=== PATIENT | female | born 1950 | race Caucasian/White ===

== ENCOUNTER 2017-07-23 10:18 | Emergency (ER) | payer MEDICAID, OTHER ==
[2017-07-23 10:18] VITALS: BMI 31.1
[2017-07-23 10:53] VITALS: RESP 18
[2017-07-23 12:01] LABS: BASO # 0.03 K/mm3 (0.0-2.0); BASO % 1.2 % (0.0-3.0); EOS # 0.1 (0.0-0.7); EOS % 3.3 % (1.5-5.0); GRAN # 0.76 (1.4-6.5); HEMATOCRIT 37.9 % (36.0-48.0); LYMPH # 1.5 (1.2-3.4); LYMPH % 60.8 % (22.0-35.0); MEAN CELL VOLUME 91.5 fl (80.0-105.0); MEAN CORPUSCULAR HGB CONC 32.7 g/dl (31.0-37.0); MEAN PLATELET VOLUME 10.5 fl (7.0-11.0); MONO # 0.1 (0.1-0.6); MONO % 3.7 % (1.0-6.0); RED CELL DISTRIBUTION WIDTH 14.4 % (11.5-14.5)
[2017-07-23 12:06] LABS: WHITE BLOOD COUNT 2.5 10^3/ul (4.5-11.0)
[2017-07-23 12:09] LABS: PH,URINE 6.5 (4.7-8.0); URINE BILIRUBIN NEGATIVE (NEGATIVE); URINE BLOOD TRACE-INTACT (NEGATIVE); URINE GLUCOSE (UA) NEGATIVE (NEGATIVE); URINE KETONE NEGATIVE (NEGATIVE); URINE LEUKOCYTE ESTERASE NEGATIVE Leu/uL (NEGATIVE); URINE PROTEIN NEGATIVE mg/dL (<30 mg/dL); URINE UROBILINOGEN 0.2 E.U./dL (<1 E.U./dL)
[2017-07-23 12:11] LABS: ALB/GLOB RATIO 1.1 (1.1-1.8); ALKALINE PHOSPHATASE 97 U/L (38-126); ALT/SGPT 12 U/L (7-56); AST/SGOT 35 U/L (14-36); BILIRUBIN,TOTAL 0.6 mg/dL (0.2-1.3); BLOOD UREA NITROGEN 17 mg/dL (7-21); CALCIUM 9.2 mg/dL (8.4-10.5); CARBON DIOXIDE 30 mmol/L (21-33); CHLORIDE 104 mmol/L (98-107); GFR AFRICAN-AMERICAN > 60; GLUCOSE,RANDOM 90 mg/dL (70-110); SODIUM 139 mmol/L (132-148); TOTAL PROTEIN 7.2 g/dL (5.8-8.3)
[2017-07-23 12:18] LABS: INR 1.16 (0.93-1.08)
[2017-07-23 12:20] LABS: URINE APPEARANCE CLEAR (CLEAR); URINE COLOR YELLOW (YELLOW)
[2017-07-23 12:30] LABS: URINE BACTERIA FEW (NEG); URINE EPITHELIAL CELLS 0 - 2 /hpf (0-5); URINE WBC 0 - 2 /hpf (0-6)
[2017-07-23 12:33] LABS: TROPONIN I < 0.01 ng/mL
--- NOTE | 2017-07-23 12:45 | RAD ---
HISTORY: chest pain COMPARISON: 09/21/2016 FINDINGS: LUNGS: Shallow lung volumes. No consolidation. PLEURA: No significant pleural effusion identified, no pneumothorax apparent. CARDIOVASCULAR: Minimal cardiomegaly. Minimal pulmonary venous congestion versus crowding due limited inspiration OSSEOUS STRUCTURES: No significant abnormalities. VISUALIZED UPPER ABDOMEN: Normal. OTHER FINDINGS: None. IMPRESSION: Limited inspiration. Mild cardiomegaly similar. . Possible central minimal pulmonary venous congestion. Crowding due to shallow inspiration another consideration
--- NOTE | 2017-07-23 12:52 | ED PDOC ---
Arrival/HPI - General Chief Complaint: Chest Pain Time Seen by Provider: 07/23/17 10:37 Historian: Patient - History of Present Illness Narrative History of Present Illness (Text): 07/23/17 12:34 66yo female with PMHx of Afib, hypertension, CAD who was referred to ED by Dr. Zimmerman for evaluation of chest pain. Patient stated that she had palpation and chest pain 2days ago, that resolved. Notes that she went to see Dr. zimmerman today for a regular office scheduled appointment and was referred to ED when she stated that she had chest pain. Notes that she had no chest pain or palpitation today. Denies any somatic complaint in ED. Past Medical History - Provider Review Nursing Documentation Reviewed: Yes - Infectious Disease Hx of Infectious Diseases: None - Tetanus Immunization Tetanus Immunization: Unknown - Reproductive Menopause: No - Past Medical History Past Medical History: Non-Contributing - Cardiac Hx Hypertension: Yes - Pulmonary Hx Respiratory Disorders: No - Neurological Hx Neurological Disorder: Yes Hx Dizziness: Yes - HEENT Hx HEENT Disorder: No - Renal Hx Renal Disorder: No - Endocrine/Metabolic Hx Endocrine Disorders: No - Hematological/Oncological Hx Blood Disorders: No - Integumentary Hx Dermatological Disorder: No - Musculoskeletal/Rheumatological Hx Musculoskeletal Disorders: Yes (chronic back pain) Hx Falls: No - Gastrointestinal Hx Gastrointestinal Disorders: No (CHRNIC CONSTIPATION) Hx Gall Bladder Disease: Yes (CHOLECYSTECTOMY) - Genitourinary/Gynecological Hx Genitourinary Disorders: Yes - Psychiatric Hx Psychophysiologic Disorder: No Hx Anxiety: No Hx Bipolar Disorder: No Hx Depression: No Hx Emotional Abuse: No Hx Hallucinations: No Hx Panic Disorder: No Hx Post Traumatic Stress Disorder: No Hx Psychosis: No Hx Physical Abuse: No Hx Schizophrenia: No Hx Sexual Abuse: No Hx Substance Use: No - Surgical History Hx Section: Yes Hx Cholecystectomy: Yes - Anesthesia Hx Anesthesia: Yes Hx Anesthesia Reactions: No Hx Malignant Hyperthermia: No - Suicidal Assessment Feels Threatened In Home Enviroment: No Family/Social History - Physician Review Nursing Documentation Reviewed: Yes Family/Social History: Unknown Family HX Smoking Status: Never Smoked Hx Alcohol Use: No Hx Substance Use: No Hx Substance Use Treatment: No Allergies/Home Meds Allergies/Adverse Reactions: Allergies No Known Allergies Allergy (Verified 09/22/16 00:57) Review of Systems - Physician Review All systems were reviewed & negative as marked: Yes - Review of Systems Constitutional: Normal Eyes: Normal ENT: Normal Respiratory: Normal Cardiovascular: Chest Pain, Palpitations. absent: Edema, Calf Pain, Orthopnea Gastrointestinal: Normal Genitourinary Female: Normal Musculoskeletal: Normal Skin: Normal Neurological: Normal Endocrine: Normal Hemo/Lymphatic: Normal Psychiatric: Normal Physical Exam Vital Signs Reviewed: Yes Vital Signs Temp Pulse Pulse Resp BP Pulse Ox 07/23/17 13:15 98.2 F 64 18 138/88 99 07/23/17 12:00 68 07/23/17 10:35 98.4 F 67 18 137/94 H 100 07/23/17 10:30 98.7 F 67 18 137/94 H 100 Temperature: Afebrile Blood Pressure: Normal Pulse: Regular Respiratory Rate: Normal Appearance: Positive for: Well-Appearing, Non-Toxic, Comfortable Pain Distress: None Mental Status: Positive for: Alert and Oriented X 3 - Systems Exam Head: Present: Atraumatic, Normocephalic Pupils: Present: PERRL Extroacular Muscles: Present: EOMI Conjunctiva: Present: Normal Mouth: Present: Moist Mucous Membranes Neck: Present: Normal Range of Motion Respiratory/Chest: Present: Clear to Auscultation, Good Air Exchange. No: Respiratory Distress, Accessory Muscle Use Cardiovascular: Present: Regular Rate and Rhythm, Normal S1, S2. No: Murmurs Abdomen: Present: Normal Bowel Sounds. No: Tenderness, Distention, Peritoneal Signs Back: Present: Normal Inspection Upper Extremity: Present: Normal Inspection. No: Cyanosis, Edema Lower Extremity: Present: Normal Inspection. No: Edema Neurological: Present: GCS=15, CN II-XII Intact, Speech Normal Skin: Present: Warm, Dry, Normal Color. No: Rashes Psychiatric: Present: Alert, Oriented x 3, Normal Insight, Normal Concentration Medical Decision Making ED Course and Treatment: 07/23/17 19:39 PT was comfortable in ED. She denied chest pain or any somatic complaint in ED. She was leukopenic and this her baseline, when compared to her previous labs. EKG Sinus kemi @57bpm. No ST changes CXR NAD Case was DW Dr. Zimmerman, who referred pt to ED. He is pt's Parasitology Teacher and sees her in his office. He recommends that pt be Dc home . PT was DC and advised to f /u with Dr. Zimmerman. - Lab Interpretations Lab Results: 07/23/17 11:30 07/23/17 11:30 Lab Results 07/23/17 11:30: Sodium 139, Potassium 4.0, Chloride 104, Carbon Dioxide 30, Anion Gap 9 L, BUN 17, Creatinine 0.7, Est GFR ( Amer) > 60, Est GFR (Non -Af Amer) > 60, Random Glucose 90, Calcium 9.2, Magnesium 2.0, Total Bilirubin 0.6, AST 35, ALT 12, Alkaline Phosphatase 97, Lactate Dehydrogenase 392, Total Creatine Kinase 45, Troponin I < 0.01, NT-Pro-B Natriuret Pep 294, Total Protein 7.2, Albumin 3.8, Globulin 3.4, Albumin/Globulin Ratio 1.1 07/23/17 11:30: Urine Color Yellow, Urine Appearance Clear, Urine pH 6.5, Ur Specific [place] 1.010, Urine Protein Negative, Urine Glucose (UA) Negative, Urine Ketones Negative, Urine Blood Trace-intact H, Urine Nitrate Negative, Urine Bilirubin Negative, Urine Urobilinogen 0.2, Ur Leukocyte Esterase Negative , Urine RBC 1 - 3, Urine WBC 0 - 2, Ur Epithelial Cells 0 - 2, Urine Bacteria Few 07/23/17 11:30: PT 12.8 H, INR 1.16 H, APTT 36.0, D-Dimer, Quantitative 232 07/23/17 11:30: WBC 2.5 L*, RBC 4.14, Hgb 12.4, Hct 37.9, MCV 91.5, MCH 30.0, MCHC 32.7, RDW 14.4, Plt Count 191, MPV 10.5, Gran % 31.0 L, Lymph % (Auto) 60.8 H, [place] % (Auto) 3.7, Eos % (Auto) 3.3, Baso % (Auto) 1.2, Gran # 0.76 L, Lymph # 1.5, [place] # 0.1, Eos # 0.1, Baso # 0.03 - RAD Interpretation Radiology Orders: 07/23/17 11:02 CHEST PORTABLE [RAD] Stat Disposition/Present on Arrival - Present on Arrival Any Indicators Present on Arrival: No History of DVT/PE: No History of Uncontrolled Diabetes: No Urinary Catheter: No History of Decub. Ulcer: No History Surgical Site Infection Following: None - Disposition Have Diagnosis and Disposition been Completed?: Yes Diagnosis: Palpitations Disposition: HOME/ ROUTINE Disposition Time: 12:50 Patient Plan: Discharge Condition: STABLE Discharge Instructions (ExitCare): Palpitations (ED) Additional Instructions: Follow up with your Doctor Return to ED for any new or reoccurring symptoms Referrals: Salomón Zimmerman MD [Family Provider] - Follow up with primary Forms: [employer] (Lao)
[2017-07-23 13:15] VITALS: BP 138/88; PULSE 64; TEMP 98.2; O2SAT 99
--- NOTE | 2017-07-23 23:35 | CARD ---
APPROVED REPORT EKG Measurement Heart [id number] <Conclusion> Sinus bradycardia Cannot rule out Anterior infarct, age undetermined Abnormal ECG
== END 2017-07-23 13:15 | disposition home or self-care (01) ==
LOC: ED 10:18
DX: R00.2 Palpitations (principal); I10 Essential (primary) hypertension; I25.10 Atherosclerotic heart disease of native coronary artery without angina pectoris; I48.91 Unspecified atrial fibrillation

== ENCOUNTER 2017-07-28 09:49 | Inpatient (IN) | payer MEDICAID ==
[2017-07-28] MEDS ORDERED: diltiaZEM IVPB 100mg in NS 100 ML IV PRN (10:02)
[2017-07-28] MEDS ORDERED: Sodium Chloride 0.9% 1,000 ML IV STA (10:03)
--- NOTE | 2017-07-28 10:03 | ED PDOC ---
Arrival/HPI - General Chief Complaint: Chest Pain Time Seen by Provider: 07/28/17 09:56 Historian: Patient - History of Present Illness Narrative History of Present Illness (Text): 07/28/17 10:00 Brii Domínguez is a 66 year old female, whose past medical history includes hypertension and atrial fibrillation, who presents to the emergency department complaining of palpitations causing chest discomfort. Patient reports being compliant with medication Eloquis and Metoprolol. Patient denies other complaints. Senior Drupal Developer: Dr. Zimmerman Time/Duration: Prior to Arrival Symptom Onset: Sudden Symptom Course: Unchanged Past Medical History - Provider Review Nursing Documentation Reviewed: Yes - Infectious Disease Hx of Infectious Diseases: None - Tetanus Immunization Tetanus Immunization: Unknown - Reproductive Menopause: Yes - Past Medical History Past Medical History: Non-Contributing - Cardiac Hx Atrial Fibrillation: Yes Hx Hypertension: Yes - Pulmonary Hx Respiratory Disorders: No - Neurological Hx Neurological Disorder: Yes Hx Dizziness: Yes - HEENT Hx HEENT Disorder: No - Renal Hx Renal Disorder: No - Endocrine/Metabolic Hx Endocrine Disorders: No - Hematological/Oncological Hx Blood Disorders: No - Integumentary Hx Dermatological Disorder: No - Musculoskeletal/Rheumatological Hx Musculoskeletal Disorders: Yes (chronic back pain) Hx Falls: No - Gastrointestinal Hx Gastrointestinal Disorders: No (CHRNIC CONSTIPATION) Hx Gall Bladder Disease: Yes (CHOLECYSTECTOMY) - Genitourinary/Gynecological Hx Genitourinary Disorders: Yes - Psychiatric Hx Psychophysiologic Disorder: No Hx Anxiety: No Hx Bipolar Disorder: No Hx Depression: No Hx Emotional Abuse: No Hx Hallucinations: No Hx Panic Disorder: No Hx Post Traumatic Stress Disorder: No Hx Psychosis: No Hx Physical Abuse: No Hx Schizophrenia: No Hx Sexual Abuse: No Hx Substance Use: No - Surgical History Hx Section: Yes Hx Cholecystectomy: Yes - Anesthesia Hx Anesthesia: Yes Hx Anesthesia Reactions: No Hx Malignant Hyperthermia: No - Suicidal Assessment Feels Threatened In Home Enviroment: No Family/Social History - Physician Review Nursing Documentation Reviewed: Yes Family/Social History: Unknown Family HX Smoking Status: Never Smoked Hx Alcohol Use: No Hx Substance Use: No Hx Substance Use Treatment: No Allergies/Home Meds Allergies/Adverse Reactions: Allergies No Known Allergies Allergy (Verified 09/22/16 00:57) Review of Systems - Review of Systems Constitutional: absent: Fevers Eyes: absent: Vision Changes Respiratory: absent: SOB, Cough Cardiovascular: Palpitations. absent: Chest Pain Gastrointestinal: absent: Abdominal Pain, Diarrhea, Nausea, Vomiting Genitourinary Female: absent: Dysuria, Frequency Musculoskeletal: absent: Back Pain Skin: absent: Rash Neurological: absent: Headache, Dizziness Endocrine: absent: Diaphoresis Hemo/Lymphatic: absent: Easy Bleeding Physical Exam Vital Signs Reviewed: Yes Vital Signs Temp Pulse Resp BP Pulse Ox 07/28/17 14:50 108 H 123/88 07/28/17 13:08 83 18 101/68 100 07/28/17 11:41 88 105/64 07/28/17 10:12 130 H 122/76 07/28/17 10:00 97.5 F L 139 H 20 122/76 100 Temperature: Afebrile Blood Pressure: Normal Pulse: Tachycardic Respiratory Rate: Normal Appearance: Positive for: Well-Appearing, Non-Toxic, Comfortable Pain Distress: None Mental Status: Positive for: Alert and Oriented X 3 - Systems Exam Head: Present: Atraumatic, Normocephalic Pupils: Present: PERRL Extroacular Muscles: Present: EOMI Conjunctiva: Present: Normal Respiratory/Chest: Present: Clear to Auscultation, Good Air Exchange. No: Respiratory Distress, Accessory Muscle Use Cardiovascular: Present: Irregular Rhythm, Tachycardic. No: Regular Rate and Rhythm, Murmurs Lower Extremity: Present: Normal Inspection. No: Edema Skin: Present: Warm, Dry, Normal Color. No: Rashes Psychiatric: Present: Alert, Oriented x 3, Normal Insight, Normal Concentration Medical Decision Making ED Course and Treatment: 07/28/17 Impression: 66 year old female with irregularly irregular heart rhythm. Plan: -- EKG -- Chest X-ray -- Labs -- Urinalysis -- Cardizem and Sodium Chloride -- Reassess and disposition Progress Notes: EKG: Ordered, reviewed, and independently interpreted the EKG. Rate : 140 BPM Rhythm : atrial fibrillation Interpretation : No ST-segment elevations or depressions, no T-wave inversions, normal intervals. 07/28/17 10:45 Chest X-ray: Creator : Yovani Nguyễn MD COMPARISON: 07/23/2017 FINDINGS: LUNGS: No active pulmonary disease. PLEURA: No significant pleural effusion identified, no pneumothorax apparent. CARDIOVASCULAR: Normal. OSSEOUS STRUCTURES: No significant abnormalities. VISUALIZED UPPER ABDOMEN: Normal. OTHER FINDINGS: None. IMPRESSION: No active disease. 07/28/17 10:[address] Zimmerman, who is aware of plan and treatment. Planning to observe patient until heart is back to normal with no discomfort. 07/28/17 13:51 Spoke to patient's daughter who is aware of treatment. Heart rate has been normal since 11:00. On reevaluation the patient feels better and is in no acute distress. I have discussed the results and plan with the patient, who expresses understanding. Patient given the opportunity to ask question, all questions were answered and there is agreement with the plan to discharge the patient home. Patient is stable for discharge. Patient was instructed to follow up Dr. Zimmerman. - Lab Interpretations Lab Results: 07/28/17 10:00 07/28/17 10:00 Lab Results 07/28/17 11:53: Urine Color Straw, Urine Appearance Clear, Urine pH 6.0, Ur Specific [place] <= 1.005, Urine Protein Negative, Urine Glucose (UA) Negative, Urine Ketones Negative, Urine Blood Negative, Urine Nitrate Negative, Urine Bilirubin Negative, Urine Urobilinogen 0.2, Ur Leukocyte Esterase Negative 07/28/17 10:00: Sodium 142, Potassium 4.1, Chloride 106, Carbon Dioxide 26, Anion Gap 14, BUN 15, Creatinine 0.7, Est GFR ( Amer) > 60, Est GFR (Non- Af Amer) > 60, Random Glucose 99, Calcium 9.5, Total Bilirubin 0.8, AST 32, ALT 13, Alkaline Phosphatase 89, Lactate Dehydrogenase 420, Total Creatine Kinase 54 , Troponin I < 0.01, NT-Pro-B Natriuret Pep 1940 H, Total Protein 7.7, Albumin 4.0, Globulin 3.7, Albumin/Globulin Ratio 1.1 07/28/17 10:00: PT 12.6 H, INR 1.14 H, APTT 40.8 H 07/28/17 10:00: WBC 2.7 L*, RBC 4.50, Hgb 13.6, Hct 41.7, MCV 92.7, MCH 30.2, MCHC 32.6, RDW 14.5, Plt Count 188, MPV 10.5, Gran % 27.5 L, Lymph % (Auto) 58.6 H, [place] % (Auto) 8.4 H, Eos % (Auto) 3.7, Baso % (Auto) 1.8, Gran # 0.75 L , Lymph # 1.6, [place] # 0.2, Eos # 0.1, Baso # 0.05 I have reviewed the lab results: Yes - RAD Interpretation Radiology Orders: 07/28/17 10:00 CHEST PORTABLE [RAD] Stat Supervisor Gate Services: Radiologist - EKG Interpretation Interpreted by ED Physician: Yes Type: 12 lead EKG - Medication Orders Current Medication Orders: Apixaban (Eliquis) 5 mg PO BID BENJA PRN Reason: Protocol Diltiazem HCl (Cardizem Cd) 180 mg PO DAILY BENJA Last Admin: 07/28/17 11:41 Dose: 180 mg MAR Pulse and Blood Pressure Document 07/28/17 11:41 [facility] (Rec: 07/28/17 11:42 [id number][facility] Pulse Pulse Rate (60-90) 88 Blood Pressure Blood Pressure (100/60-150/90) 105/64 diltiaZEM IVPB 100mg in NS (Cardizem 100mg In Ns) 100 mls @ 5 mls/hr IV .Q20H PRN; Protocol; 5 MG/HR PRN Reason: TITRATE PER MD ORDER Last Admin: 07/28/17 14:50 Dose: 5 mg/hr, 5 mls/hr eMAR Start Stop Document 07/28/17 14:50 [facility] (Rec: 07/28/17 15:04 [id number]) Intravenous Solution Start Date 07/28/17 Start Time 14:50 OCT Pulse and Blood Pressure Document 07/28/17 14:50 [facility] (Rec: 07/28/17 15:04 [id number]) Pulse Pulse Rate (60-90) 108 Blood Pressure Blood Pressure (100/60-150/90) 123/88 Titration Intervention Document 07/28/17 14:50 [facility] (Rec: 07/28/17 15:04 [id number]) Titration Intake Waste Amount 0 Container Volume 100 Titration Dosing Titration Dose 5 IV Rate 5 Intake/Decrease Started Metoprolol Succinate (Toprol Xl) 25 mg PO BRK BENJA Discontinued Medications Diltiazem HCl (Cardizem) 15 mg IVP STAT STA Stop: 07/28/17 10:03 Last Admin: 07/28/17 10:12 Dose: 15 mg IVP Administration Document 07/28/17 10:12 [facility] (Rec: 07/28/17 10:12 [id number]) Charges for Administration # of IVP Administrations 1 MAR Pulse and Blood Pressure Document 07/28/17 10:12 [facility] (Rec: 07/28/17 10:12 [facility]-[id number]) Pulse Pulse Rate (60-90) 130 Blood Pressure Blood Pressure (100/60-150/90) 122/76 Sodium Chloride (Sodium Chloride 0.9%) 1,000 mls @ 999 mls/hr IV .Q1H1M STA Stop: 07/28/17 11:03 Last Admin: 07/28/17 10:12 Dose: 999 mls/hr eMAR Start Stop Document 07/28/17 10:12 [facility] (Rec: 07/28/17 10:17 [facility]-[id number]) Intravenous Solution Start Date 07/28/17 Start Time 10:17 End Date 07/28/17 End time 10:17 Total Infusion Time 0 - Scribe Statement The provider has reviewed the documentation as recorded by the Rosita Wooten Provider Scribe Attestation: All medical record entries made by the Scribe were at my direction and personally dictated by me. I have reviewed the chart and agree that the record accurately reflects my personal performance of the history, physical exam, medical decision making, and the department course for this patient. I have also personally directed, reviewed, and agree with the discharge instructions and disposition. Disposition/Present on Arrival - Present on Arrival Any Indicators Present on Arrival: No History of DVT/PE: No History of Uncontrolled Diabetes: No Urinary Catheter: No History of Decub. Ulcer: No History Surgical Site Infection Following: None - Disposition Diagnosis: Rapid atrial fibrillation, Atrial fibrillation Disposition: HOSPITALIZED Disposition Time: 14:00 Patient Plan: Discharge Patient Problems: Current Active Problems Problem Status Onset Rapid atrial fibrillation Acute Atrial fibrillation Acute Condition: GOOD
[2017-07-28 10:24] LABS: BASO # 0.05 K/mm3 (0.0-2.0); BASO % 1.8 % (0.0-3.0); EOS # 0.1 (0.0-0.7); EOS % 3.7 % (1.5-5.0); GRAN # 0.75 (1.4-6.5); GRAN % 27.5 % (50.0-68.0); HEMATOCRIT 41.7 % (36.0-48.0); LYMPH # 1.6 (1.2-3.4); LYMPH % 58.6 % (22.0-35.0); MEAN CELL VOLUME 92.7 fl (80.0-105.0); MEAN CORPUSCULAR HEMOGLOBIN 30.2 pg (25.0-35.0); MEAN CORPUSCULAR HGB CONC 32.6 g/dl (31.0-37.0); MEAN PLATELET VOLUME 10.5 fl (7.0-11.0); MONO # 0.2 (0.1-0.6); MONO % 8.4 % (1.0-6.0); RED CELL DISTRIBUTION WIDTH 14.5 % (11.5-14.5)
[2017-07-28 10:33] LABS: WHITE BLOOD COUNT 2.7 10^3/ul (4.5-11.0)
[2017-07-28 10:36] LABS: ALB/GLOB RATIO 1.1 (1.1-1.8); ALKALINE PHOSPHATASE 89 U/L (38-126); ALT/SGPT 13 U/L (7-56); AST/SGOT 32 U/L (14-36); BILIRUBIN,TOTAL 0.8 mg/dL (0.2-1.3); BLOOD UREA NITROGEN 15 mg/dL (7-21); CALCIUM 9.5 mg/dL (8.4-10.5); CARBON DIOXIDE 26 mmol/L (21-33); CHLORIDE 106 mmol/L (98-107); GFR AFRICAN-AMERICAN > 60; GLUCOSE,RANDOM 99 mg/dL (70-110); POTASSIUM 4.1 mmol/L (3.6-5.0); SODIUM 142 mmol/L (132-148); TOTAL PROTEIN 7.7 g/dL (5.8-8.3)
[2017-07-28 10:38] LABS: INR 1.14 (0.93-1.08); PARTIAL THROMBOPLASTIN TIME 40.8 Seconds (25.1-36.5)
--- NOTE | 2017-07-28 10:42 | RAD ---
HISTORY: cp COMPARISON: 07/23/2017 FINDINGS: LUNGS: No active pulmonary disease. PLEURA: No significant pleural effusion identified, no pneumothorax apparent. CARDIOVASCULAR: Normal. OSSEOUS STRUCTURES: No significant abnormalities. VISUALIZED UPPER ABDOMEN: Normal. OTHER FINDINGS: None. IMPRESSION: No active disease.
[2017-07-28 10:48] LABS: TROPONIN I < 0.01 ng/mL
[2017-07-28] MEDS ORDERED: diltiaZEM 180 mg/24 Hours CD Cap PO SCH (11:15)
[2017-07-28 12:01] LABS: URINE BILIRUBIN NEGATIVE (NEGATIVE); URINE BLOOD NEGATIVE (NEGATIVE); URINE GLUCOSE (UA) NEGATIVE (NEGATIVE); URINE KETONE NEGATIVE (NEGATIVE); URINE LEUKOCYTE ESTERASE NEGATIVE Leu/uL (NEGATIVE); URINE PROTEIN NEGATIVE mg/dL (<30 mg/dL); URINE UROBILINOGEN 0.2 E.U./dL (<1 E.U./dL)
[2017-07-28 12:02] LABS: URINE APPEARANCE CLEAR (CLEAR); URINE COLOR STRAW (YELLOW)
--- NOTE | 2017-07-28 12:42 | CARD ---
APPROVED REPORT EKG Measurement Heart [id number] <Conclusion> Atrial flutter with variable AV block with premature ventricular or aberrantly conducted complexes Cannot rule out Anterior infarct, age undetermined Marked ST abnormality, possible inferior subendocardial injury Abnormal ECG
--- NOTE | 2017-07-28 12:42 | CARD ---
APPROVED REPORT EKG Measurement Heart [id number] <Conclusion> Atrial fibrillation Abnormal ECG
[2017-07-28] MEDS: Metoprolol Succinate 25 mg XL Tab PO SCH (17:58)
[2017-07-28 18:35] LABS: CHOLESTEROL 170 mg/dL (130-200)
--- NOTE | 2017-07-28 18:37 | CP.PCM.HP ---
<Anna Hills - Last Filed: 07/28/17 18:31> History of Present Illness - History of Present Illness History of Present Illness: Anna Hills DO PGY1 - Internal Medicine H&P CC: Fast heart beat HPI: 65 y/o F with PMH of paroxysmal A-Fib, and chronic back pain presents to the ED for rapid heart beat and palpitations since the prior night. She reports that her heart starting beating very fast and hard last night, making it difficult to sleep. After she eventually fell asleep, she woke up and the symptoms had not resolved, so she decided to come in to the ER. She was not doing anything in particular when her palpitations started. She reports that about one week ago, she had a similar episode, but that it resolved spontaneously by the time she had woken up. She denies any chest pain, SOB, nausea, vomiting, dizziness. She admits to recent odontogenic infection for which she completed a 10 day course of antibiotics 4 days ago. She denies fevers , chills, night sweats, diarrhea, constipation, abdominal pain. 12 point ROS is negative except as in HPI PMH: PAF, chronic back pain Surgical Hx: x 2, tunde, D&C, L breast cyst removal Social Hx: Never smoked, no drugs. Social EtOH. Used to do office work Family Hx: Mom had breast CA. Dad had CVA passed at 55yo [place] Allergies: NKDA Medications: Eliquis 5mg BID, Toprol XL 25mg daily PMD: Dr. Min International Manager: Dr. Zimmerman [place] [facility] [place] on Admission - Present on Admission Any Indicators Present on Admission: No Past Patient History - Infectious Disease Hx of Infectious Diseases: None - Tetanus Immunizations Tetanus Immunization: Unknown - Past Social History Smoking Status: Never Smoked - CARDIAC Hx Atrial Fibrillation: Yes Hx Hypertension: Yes - PULMONARY Hx Respiratory Disorders: No - NEUROLOGICAL Hx Neurological Disorder: Yes Hx Dizziness: Yes - HEENT Hx HEENT Problems: No - RENAL Hx Chronic Kidney Disease: No - ENDOCRINE/METABOLIC Hx Endocrine Disorders: No - HEMATOLOGICAL/ONCOLOGICAL Hx Blood Disorders: No - INTEGUMENTARY Hx Dermatological Problems: No - MUSCULOSKELETAL/RHEUMATOLOGICAL Hx Musculoskeletal Disorders: Yes (chronic back pain) Hx Falls: No - GASTROINTESTINAL Hx Gastrointestinal Disorders: No (CHRNIC CONSTIPATION) Hx Gall Bladder Disease: Yes (CHOLECYSTECTOMY) - GENITOURINARY/GYNECOLOGICAL Hx Genitourinary Disorders: Yes - PSYCHIATRIC Hx Psychophysiologic Disorder: No Hx Anxiety: No Hx Bipolar Disorder: No Hx Depression: No Hx Emotional Abuse: No Hx Hallucinations: No Hx Panic Symptoms: No Hx Post Traumatic Stress Disorder: No Hx Psychosis: No Hx Physical Abuse: No Hx Schizophrenia: No Hx Sexual Abuse: No Hx Substance Use: No - SURGICAL HISTORY Hx Section: Yes Hx Cholecystectomy: Yes - ANESTHESIA Hx Anesthesia: Yes Hx Anesthesia Reactions: No Hx Malignant Hyperthermia: No Meds Allergies/Adverse Reactions: Allergies Allergy/AdvReac Type Severity Reaction Status Date / Time No Known Allergies Allergy Verified 09/22/16 00:57 Physical Exam - Constitutional Appears: Non-toxic, No Acute Distress - Head Exam Head Exam: ATRAUMATIC, NORMOCEPHALIC - Eye Exam Eye Exam: EOMI, Normal appearance, PERRL - ENT Exam ENT Exam: Mucous Membranes Moist - Respiratory Exam Respiratory Exam: Clear to Auscultation Bilateral, NORMAL BREATHING PATTERN. absent: Rales, Rhonchi, Wheezes - Cardiovascular Exam Cardiovascular Exam: Tachycardia (intermittent, borderline; patient was already on cardizem drip during encounter), Irregular Rhythm, +S1, +S2 - GI/Abdominal Exam GI & Abdominal Exam: Normal Bowel Sounds, Soft. absent: Tenderness - Extremities Exam Extremities exam: Negative for: calf tenderness, pedal edema - Neurological Exam Neurological exam: Alert, Oriented x3 - Psychiatric Exam Psychiatric exam: Normal Affect, Normal Mood - Skin Skin Exam: Dry, Intact, Normal Color, Warm Results - Vital Signs Recent Vital Signs: Last Vital Signs Temp 97.5 F L 07/28/17 10:00 Pulse 74 07/28/17 17:58 Resp 18 07/28/17 16:15 BP 107/69 07/28/17 17:58 Pulse Ox 99 07/28/17 16:15 - Labs Result Diagrams: 07/28/17 10:00 07/28/17 10:00 Assessment & Plan - Assessment and Plan (Free Text) Assessment: 66 yo F with PMH of paroxysmal afib, chronic back pain, presents to ER complaining of palpitations, noted to be in afib RVR Plan 1. Atrial fibrillation, RVR - Started suddenly at home, no particular inciting incidents; patient denies chest pain, dyspnea on exertion - Elevated BNP on intake labs; likely 2/2 strain in RVR, rather than fluid overload/congestion - Initial troponin negative; continue to trend - Initial EKG with multiple abnormalities; repeat EKG after rate control significant only for atrial fibrillation; Repeat EKG in AM - R/o infectious trigger; CXR shows no active disease; patient is afebrile with leukopenia, which is her baseline; UA negative - Ordered TSH, lipid panel, A1c - Patient had stress test in 06/2017 which was normal - Patient also had echocardiogram done in 06/2017 which showed diastolic dysfunction, mild TR, no pulmonary HTN, and good LV function (LVEF 59.3%) - Resume home eliquis - Continue cardizem drip - Continue toprol XL - Cardio on consult, appreciate recs 2. Leukopenia - Patient's WBC 2.7 which is at her baseline - Previously worked up in August 2016, negative for HIV, hepatitis GI/DVT Ppx - Protonix; eliquis covers for DVT Patient seen, discussed and reviewed with attending <Sarah Hill - Last Filed: 07/28/17 21:52> Results - Vital Signs Recent Vital Signs: Last Vital Signs Temp 97.5 F L 07/28/17 19:24 Pulse 60 07/28/17 19:50 Resp 18 07/28/17 19:24 BP 122/57 L 07/28/17 19:24 Pulse Ox 99 07/28/17 16:15 - Labs Result Diagrams: 07/28/17 10:00 07/28/17 10:00 Labs: Laboratory Results - last 24 hr 07/28/17 07/28/17 07/28/17 18:21 18:21 18:21 Hemoglobin A1c 5.6 Troponin I < 0.01 Triglycerides 60 Cholesterol 170 LDL Cholesterol Direct 76 HDL Cholesterol 73 H TSH 3rd Generation 1.01 Attending/Attestation - Attestation I have personally seen and examined this patient.: Yes I have fully participated in the care of the patient.: Yes I have reviewed all pertinent clinical information: Yes Notes (Text): 07/28/17 21:47 66 year old female with past medical history of paroxysmal afib who presented with complaint of palpitations. She was found to have afib with RVR and started on cardizem drip. She is also on eliquis. Cardiology evaluation is requested. Serial cardiac enzymes and TFTs are ordered. Pbnp is elevated however CXR is negative for congestion. Recent echo reviewed showing diastolic dysfunction. Patient has chronic leukopenia; will continue to monitor. Sarah Hill MD Hospitalist.
[2017-07-28 18:49] LABS: TROPONIN I < 0.01 ng/mL
[2017-07-28 19:45] VITALS: BMI 29.2
[2017-07-28] MEDS ORDERED: Influenza Vaccine 60 mcg/0.5 mL SYR (4YR UP) IM ONE (19:45)
[2017-07-28] MEDS ORDERED: Pneumococcal 23-Valent Vaccine IM ONE (19:45)
--- NOTE | 2017-07-29 00:46 | CON ---
DATE: 07/28/2017 HISTORY: The patient is a 65-year-old [place] woman who presents with recurrence of palpitations and found to be in rapid atrial fibrillation. PAST MEDICAL HISTORY: Notable for paroxysmal atrial fibrillation, hypertension, mildly overweight. She was treated with Cardizem as well as beta-blockers. However, she stopped taking the beta-blockers because she did like the way they made her feel. She also suffers from hypertension. Her past medical history is notable for history of cholecystectomy as well as breast cyst surgery. SOCIAL HISTORY: The patient does not drink or smoke. FAMILY HISTORY: Notable for father with a CVA in the 50s. REVIEW OF SYSTEM: A 14-point review of systems was reviewed in detail. There are no cardiac symptomatology noted. No chest pain. No shortness of breath, no edema, and no dizziness. PHYSICAL EXAMINATION: VITAL SIGNS: Blood pressure 123/88, heart rate is in atrial fibrillation in 130s which is now down to 108 after IV Cardizem. NECK: Negative JVD. LUNGS: Without rales. HEART: S1, S2. EXTREMITIES: Without edema. LABORATORY DATA: The hemoglobin is 13.6 with a white count of 2.7, which is chronic. Chemistries: BUN and creatinine are unremarkable. Troponins are negative. ProBNP is 1940. IMPRESSION: 1. Atrial fibrillation with increased heart rate exacerbated by stopping her beta-blockers. 2. Hypertension. 3. Palpitations. 4. Overweight. PLAN: Given these findings, we will restart the patient on her Eliquis. IV Cardizem has been ordered in addition of her p.o. Cardizem. We will add a beta-david to her regimen. There is no further cardiac testing necessary given that her recent stress test revealed an ejection fraction of 67% with no ischemic changes as well as an echocardiogram which was done earlier this month that showed normal LV function with no pulmonary hypertension. Salomón Zimmerman MD
[2017-07-29 06:31] VITALS: O2SAT 99
[2017-07-29 06:35] LABS: BASO # 0.04 K/mm3 (0.0-2.0); BASO % 1.6 % (0.0-3.0); EOS # 0.1 (0.0-0.7); EOS % 4.4 % (1.5-5.0); GRAN # 0.58 (1.4-6.5); GRAN % 23.4 % (50.0-68.0); HEMATOCRIT 35.7 % (36.0-48.0); LYMPH # 1.5 (1.2-3.4); MEAN CORPUSCULAR HEMOGLOBIN 29.4 pg (25.0-35.0); MEAN CORPUSCULAR HGB CONC 31.9 g/dl (31.0-37.0); MEAN PLATELET VOLUME 10.6 fl (7.0-11.0); MONO # 0.3 (0.1-0.6); MONO % 11.6 % (1.0-6.0); RED CELL DISTRIBUTION WIDTH 14.5 % (11.5-14.5)
[2017-07-29 06:51] LABS: WHITE BLOOD COUNT 2.5 10^3/ul (4.5-11.0)
[2017-07-29 06:55] LABS: TROPONIN I < 0.01 ng/mL
[2017-07-29 07:10] LABS: ALB/GLOB RATIO 1.1 (1.1-1.8); ALKALINE PHOSPHATASE 70 U/L (38-126); ALT/SGPT 20 U/L (7-56); AST/SGOT 29 U/L (14-36); BILIRUBIN,TOTAL 0.8 mg/dL (0.2-1.3); BLOOD UREA NITROGEN 14 mg/dL (7-21); CARBON DIOXIDE 28 mmol/L (21-33); CHLORIDE 107 mmol/L (98-107); GFR AFRICAN-AMERICAN > 60; GLUCOSE,RANDOM 93 mg/dL (70-110); POTASSIUM 4.1 mmol/L (3.6-5.0); SODIUM 140 mmol/L (132-148); TOTAL PROTEIN 6.6 g/dL (5.8-8.3)
[2017-07-29] MEDS ORDERED: Pantoprazole 40 mg EC Tab PO SCH (07:30)
[2017-07-29] MEDS ORDERED: Metoprolol Succinate 25 mg XL Tab PO SCH (08:00)
[2017-07-29] MEDS: Metoprolol Succinate 25 mg XL Tab PO SCH (08:06)
[2017-07-29] MEDS ORDERED: diltiaZEM 180 mg/24 Hours CD Cap PO SCH (10:00)
--- NOTE | 2017-07-29 10:50 | CARD ---
APPROVED REPORT EKG Measurement Heart [id number] <Conclusion> Sinus bradycardia Otherwise normal ECG
[2017-07-29 13:55] VITALS: BP 103/61; RESP 18; TEMP 98.6
[2017-07-29 15:11] VITALS: PULSE 62
--- NOTE | 2017-07-29 16:59 | PN ---
DATE: 07/29/2017 SUBJECTIVE: The patient's heart rate is better controlled. PHYSICAL EXAMINATION: VITAL SIGNS: Blood pressure 100/66, heart rate in the 60s. NECK: Negative JVD. LUNGS: Without rales. HEART: S1, S2. EXTREMITIES: Without edema. Hemoglobin is 11.4. Chemistries, BUN and creatinine unremarkable. Troponins are negative. IMPRESSION: Better heart rate control with reinstitution of the diltiazem. PLAN: Given her bradycardia, we will discontinue her beta-blockers. Eliquis has been restarted. From a cardiac perspective, the patient can be discharged. Followup instructions were given to the patient. Salomón Zimmerman MD
--- NOTE | 2017-07-29 17:11 | CP.PCM.DIS ---
<Anna Hills - Last Filed: 07/29/17 17:03> Provider - Provider Date of Admission: 07/28/17 14:12 Attending physician: Sarah Hill MD Consults: Cardio: Erasmo Time Spent in preparation of Discharge (in minutes): 45 Diagnosis - Discharge Diagnosis (1) Atrial fibrillation Status: Acute (2) Rapid atrial fibrillation Status: Acute Hospital Course - Lab Results Lab Results: Most Recent Lab Values WBC 2.5 10^3/ul (4.5-11.0) L* 07/29/17 05:30 RBC 3.88 10^6/uL (3.5-6.1) 07/29/17 05:30 Hgb 11.4 g/dL (12.0-16.0) L D 07/29/17 05:30 Hct 35.7 % (36.0-48.0) L 07/29/17 05:30 MCV 92.0 fl (80.0-105.0) 07/29/17 05:30 MCH 29.4 pg (25.0-35.0) 07/29/17 05:30 MCHC 31.9 g/dl (31.0-37.0) 07/29/17 05:30 RDW 14.5 % (11.5-14.5) 07/29/17 05:30 Plt Count 159 10^3/uL (120.0-450.0) 07/29/17 05:30 MPV 10.6 fl (7.0-11.0) 07/29/17 05:30 Gran % 23.4 % (50.0-68.0) L 07/29/17 05:30 Lymph % (Auto) 59.0 % (22.0-35.0) H 07/29/17 05:30 [place] % (Auto) 11.6 % (1.0-6.0) H 07/29/17 05:30 Eos % (Auto) 4.4 % (1.5-5.0) 07/29/17 05:30 Baso % (Auto) 1.6 % (0.0-3.0) 07/29/17 05:30 Gran # 0.58 (1.4-6.5) L 07/29/17 05:30 Lymph # 1.5 (1.2-3.4) 07/29/17 05:30 [place] # 0.3 (0.1-0.6) 07/29/17 05:30 Eos # 0.1 (0.0-0.7) 07/29/17 05:30 Baso # 0.04 K/mm3 (0.0-2.0) 07/29/17 05:30 PT 12.6 SECONDS (9.4-12.5) H 07/28/17 10:00 INR 1.14 (0.93-1.08) H 07/28/17 10:00 APTT 40.8 Seconds (25.1-36.5) H 07/28/17 10:00 Sodium 140 mmol/L (132-148) 07/29/17 05:30 Potassium 4.1 mmol/L (3.6-5.0) 07/29/17 05:30 Chloride 107 mmol/L (98-107) 07/29/17 05:30 Carbon Dioxide 28 mmol/L (21-33) 07/29/17 05:30 Anion Gap 9 (10-20) L 07/29/17 05:30 BUN 14 mg/dL (7-21) 07/29/17 05:30 Creatinine 0.7 mg/dl (0.7-1.2) 07/29/17 05:30 Est GFR ( Amer) > 60 07/29/17 05:30 Est GFR (Non-Af Amer) > 60 07/29/17 05:30 Random Glucose 93 mg/dL (70-110) 07/29/17 05:30 Hemoglobin A1c 5.6 % (4.2-6.5) 07/28/17 18:21 Calcium 9.0 mg/dL (8.4-10.5) 07/29/17 05:30 Total Bilirubin 0.8 mg/dL (0.2-1.3) 07/29/17 05:30 AST 29 U/L (14-36) 07/29/17 05:30 ALT 20 U/L (7-56) 07/29/17 05:30 Alkaline Phosphatase 70 U/L (38-126) 07/29/17 05:30 Lactate Dehydrogenase 420 U/L (333-699) 07/28/17 10:00 Total Creatine Kinase 54 U/L (35-230) 07/28/17 10:00 Troponin I < 0.01 ng/mL 07/29/17 05:30 NT-Pro-B Natriuret Pep 1940 pg/mL (0-450) H 07/28/17 10:00 Total Protein 6.6 g/dL (5.8-8.3) 07/29/17 05:30 Albumin 3.4 g/dL (3.0-4.8) 07/29/17 05:30 Globulin 3.2 gm/dL 07/29/17 05:30 Albumin/Globulin Ratio 1.1 (1.1-1.8) 07/29/17 05:30 Triglycerides 60 mg/dL (35-160) 07/28/17 18:21 Cholesterol 170 mg/dL (130-200) 07/28/17 18:21 LDL Cholesterol Direct 76 mg/dL (0-129) 07/28/17 18:21 HDL Cholesterol 73 mg/dL (29-60) H 07/28/17 18:21 TSH 3rd Generation 1.01 mIU/mL (0.46-4.68) 07/28/17 18:21 Urine Color Straw (YELLOW) 07/28/17 11:53 Urine Appearance Clear (CLEAR) 07/28/17 11:53 Urine pH 6.0 (4.7-8.0) 07/28/17 11:53 Ur Specific [place] <= 1.005 (1.005-1.035) 07/28/17 11:53 Urine Protein Negative mg/dL (<30 mg/dL) 07/28/17 11:53 Urine Glucose (UA) Negative mg/dL (NEGATIVE) 07/28/17 11:53 Urine Ketones Negative mg/dL (NEGATIVE) 07/28/17 11:53 Urine Blood Negative (NEGATIVE) 07/28/17 11:53 Urine Nitrate Negative (NEGATIVE) 07/28/17 11:53 Urine Bilirubin Negative (NEGATIVE) 07/28/17 11:53 Urine Urobilinogen 0.2 E.U./dL (<1 E.U./dL) 07/28/17 11:53 Ur Leukocyte Esterase Negative Murali/uL (NEGATIVE) 07/28/17 11:53 - Hospital Course Hospital Course: 66 yo F with PMH of paroxysmal atrial fibrillation s/p cardioversion 10 months ago presented to the ER complaining of palpitations that had started the prior night. Patient was noted to be in RVR afib, and was treated with cardizem PO and drip. After her rate was again controlled, the drip was stopped, but the patient remained borderline bradycardic. This prompted the recommendation to discontinue the betablocker and maintain her on PO cardizem, per the sterilization technician. Throughout her admission, workup was negative for ACS, and she never had chest pain or dyspnea. Today, she feels well, no longer complaining of palpitations. She denies any chest pain or shortness of breath. Patient was given instructions on her new medication regimen, and to follow up with her PMD within one week. All questions were answered to her satisfaction, and she was discharged to home. Discharge Exam - Head Exam Head Exam: ATRAUMATIC, NORMOCEPHALIC - Eye Exam Eye Exam: EOMI, Normal appearance, PERRL - ENT Exam ENT Exam: Mucous Membranes Moist - Neck Exam Neck exam: Normal Inspection - Respiratory Exam Respiratory Exam: Clear to PA & Lateral, NORMAL BREATHING PATTERN - Cardiovascular Exam Cardiovascular Exam: REGULAR RHYTHM, +S1, +S2. absent: Tachycardia - GI/Abdominal Exam GI & Abdominal Exam: Normal Bowel Sounds, Soft. absent: Tenderness - Extremities Exam Extremities exam: normal inspection - Neurological Exam Neurological exam: Alert, Oriented x3 - Psychiatric Exam Psychiatric exam: Normal Affect, Normal Mood - Skin Skin Exam: Dry, Intact, Normal Color Discharge Plan - Discharge Medications Prescriptions: Diltiazem HCl [Diltiazem 24Hr Cd] 180 mg PO DAILY #30 cap.er.24h - Follow Up Plan Condition: GOOD Disposition: HOME/ ROUTINE Instructions: Atrial Fibrillation (DC), Chest Pain (GEN), Heart Healthy Diet ( DC), Chronic Hypertension (DC) Additional Instructions: 1. Discontinue Metoprolol, and instead start Diltiazem 180mg one tablet daily 2. Continue eliquis as previously prescribed 3. Follow up with Dr. Zimmerman in 2-3 months, as discussed with him 4. Follow up with your primary doctor within one week 5. For any new or worsening concerns, contact PCP immediately or return to ER <Sarah Hill - Last Filed: 07/29/17 22:14> Provider - Provider Date of Admission: 07/28/17 14:12 Attending physician: Sarah Hill MD [facility] Course - Lab Results Lab Results: Most Recent Lab Values WBC 2.5 10^3/ul (4.5-11.0) L* 07/29/17 05:30 RBC 3.88 10^6/uL (3.5-6.1) 07/29/17 05:30 Hgb 11.4 g/dL (12.0-16.0) L D 07/29/17 05:30 Hct 35.7 % (36.0-48.0) L 07/29/17 05:30 MCV 92.0 fl (80.0-105.0) 07/29/17 05:30 MCH 29.4 pg (25.0-35.0) 07/29/17 05:30 MCHC 31.9 g/dl (31.0-37.0) 07/29/17 05:30 RDW 14.5 % (11.5-14.5) 07/29/17 05:30 Plt Count 159 10^3/uL (120.0-450.0) 07/29/17 05:30 MPV 10.6 fl (7.0-11.0) 07/29/17 05:30 Gran % 23.4 % (50.0-68.0) L 07/29/17 05:30 Lymph % (Auto) 59.0 % (22.0-35.0) H 07/29/17 05:30 [place] % (Auto) 11.6 % (1.0-6.0) H 07/29/17 05:30 Eos % (Auto) 4.4 % (1.5-5.0) 07/29/17 05:30 Baso % (Auto) 1.6 % (0.0-3.0) 07/29/17 05:30 Gran # 0.58 (1.4-6.5) L 07/29/17 05:30 Lymph # 1.5 (1.2-3.4) 07/29/17 05:30 [place] # 0.3 (0.1-0.6) 07/29/17 05:30 Eos # 0.1 (0.0-0.7) 07/29/17 05:30 Baso # 0.04 K/mm3 (0.0-2.0) 07/29/17 05:30 PT 12.6 SECONDS (9.4-12.5) H 07/28/17 10:00 INR 1.14 (0.93-1.08) H 07/28/17 10:00 APTT 40.8 Seconds (25.1-36.5) H 07/28/17 10:00 Sodium 140 mmol/L (132-148) 07/29/17 05:30 Potassium 4.1 mmol/L (3.6-5.0) 07/29/17 05:30 Chloride 107 mmol/L (98-107) 07/29/17 05:30 Carbon Dioxide 28 mmol/L (21-33) 07/29/17 05:30 Anion Gap 9 (10-20) L 07/29/17 05:30 BUN 14 mg/dL (7-21) 07/29/17 05:30 Creatinine 0.7 mg/dl (0.7-1.2) 07/29/17 05:30 Est GFR ( Amer) > 60 07/29/17 05:30 Est GFR (Non-Af Amer) > 60 07/29/17 05:30 Random Glucose 93 mg/dL (70-110) 07/29/17 05:30 Hemoglobin A1c 5.6 % (4.2-6.5) 07/28/17 18:21 Calcium 9.0 mg/dL (8.4-10.5) 07/29/17 05:30 Total Bilirubin 0.8 mg/dL (0.2-1.3) 07/29/17 05:30 AST 29 U/L (14-36) 07/29/17 05:30 ALT 20 U/L (7-56) 07/29/17 05:30 Alkaline Phosphatase 70 U/L (38-126) 07/29/17 05:30 Lactate Dehydrogenase 420 U/L (333-699) 07/28/17 10:00 Total Creatine Kinase 54 U/L (35-230) 07/28/17 10:00 Troponin I < 0.01 ng/mL 07/29/17 05:30 NT-Pro-B Natriuret Pep 1940 pg/mL (0-450) H 07/28/17 10:00 Total Protein 6.6 g/dL (5.8-8.3) 07/29/17 05:30 Albumin 3.4 g/dL (3.0-4.8) 07/29/17 05:30 Globulin 3.2 gm/dL 07/29/17 05:30 Albumin/Globulin Ratio 1.1 (1.1-1.8) 07/29/17 05:30 Triglycerides 60 mg/dL (35-160) 07/28/17 18:21 Cholesterol 170 mg/dL (130-200) 07/28/17 18:21 LDL Cholesterol Direct 76 mg/dL (0-129) 07/28/17 18:21 HDL Cholesterol 73 mg/dL (29-60) H 07/28/17 18:21 TSH 3rd Generation 1.01 mIU/mL (0.46-4.68) 07/28/17 18:21 Urine Color Straw (YELLOW) 07/28/17 11:53 Urine Appearance Clear (CLEAR) 07/28/17 11:53 Urine pH 6.0 (4.7-8.0) 07/28/17 11:53 Ur Specific [place] <= 1.005 (1.005-1.035) 07/28/17 11:53 Urine Protein Negative mg/dL (<30 mg/dL) 07/28/17 11:53 Urine Glucose (UA) Negative mg/dL (NEGATIVE) 07/28/17 11:53 Urine Ketones Negative mg/dL (NEGATIVE) 07/28/17 11:53 Urine Blood Negative (NEGATIVE) 07/28/17 11:53 Urine Nitrate Negative (NEGATIVE) 07/28/17 11:53 Urine Bilirubin Negative (NEGATIVE) 07/28/17 11:53 Urine Urobilinogen 0.2 E.U./dL (<1 E.U./dL) 07/28/17 11:53 Ur Leukocyte Esterase Negative Murali/uL (NEGATIVE) 07/28/17 11:53 Attending/Attestation - Attestation I have personally seen and examined this patient.: Yes I have fully participated in the care of the patient.: Yes I have reviewed all pertinent clinical information, including history, physical exam and plan: Yes Notes (Text): 07/29/17 22:12 66 year old female with past medical history of paroxysmal afib who presented with complaint of palpitations. She was found to have afib with RVR and started on cardizem drip which improvement of HR. Patient has chronic leukopenia; recommended outpatient monitoring. Patient is discharged home to follow up pmd and sterilization technician. Sarah Hill MD Hospitalist.
--- NOTE | 2017-07-29 18:40 | PN ---
DATE: 07/29/2017 CARDIOLOGY FOLLOWUP SUBJECTIVE: The patient is reverted to normal sinus rhythm with bradycardia with the heart rate in the 60s. PHYSICAL EXAMINATION: GENERAL: The patient is ambulating without symptoms. VITAL SIGNS: Blood pressure is 103/61, the heart rate is in the 60s, normal sinus rhythm. NECK: Negative JVD. LUNGS: Without rales. HEART: S1 and S2. EXTREMITIES: Without edema. LABORATORY DATA: The hemoglobin is 11.4. Chemistries: Troponins are negative x3. IMPRESSION: 1. Atrial fibrillation with increased heart rate due to self-medication changes at home. 2. History of paroxysmal atrial fibrillation. 3. Anemia. 4. Hypertension. 5. Palpitations. PLAN: Given these findings, we will discontinue her metoprolol. The patient should go home on [facility] and follow patient instructions and follow doctors' instructions. Discussed this with the patient as well as her daughter through the phone. Followup instructions have been given to the patient in detail. Salomón Zimmerman MD
== END 2017-07-29 17:37 | disposition home or self-care (01) | DRG 139 ==
LOC: ED 09:49 → ERH 14:12 → 3RSO 16:22
PROVIDERS: ADMIT Hospitalist; ATTEND Internal Medicine
DX: I48.0 Paroxysmal atrial fibrillation (principal); I10 Essential (primary) hypertension; D64.9 Anemia, unspecified; E66.3 Overweight; D72.819 Decreased white blood cell count, unspecified

== ENCOUNTER 2018-05-04 08:51 | Day surgery (SDC) | payer MEDICAID ==
[2018-04-29 11:09] VITALS: BMI 35.2
[2018-05-04] MEDS ORDERED: Propofol 10 mg/ml Inj (20 ML) ONE (10:00)
[2018-05-04] MEDS ORDERED: Sodium Chloride 0.9% 1,000 ML IV SCH (11:00)
[2018-05-04 11:53] VITALS: TEMP 97.6
[2018-05-04 13:09] VITALS: RESP 19; O2SAT 100
[2018-05-04 13:28] VITALS: BP 123/58; PULSE 57
== END 2018-05-04 13:47 | disposition home or self-care (01) ==
LOC: ENDO 08:51
PROVIDERS: ATTEND Internal Medicine Gastroenterology
DX: Z12.11 Encounter for screening for malignant neoplasm of colon (principal); K64.0 First degree hemorrhoids; K22.2 Esophageal obstruction; K29.70 Gastritis, unspecified, without bleeding; K44.9 Diaphragmatic hernia without obstruction or gangrene; R10.13 Epigastric pain
CPT/HCPCS: 43239; 45378; 88305; 88342; J2001; J2704; J7030; J7040

== ENCOUNTER 2018-11-04 15:01 | Outpatient (CLI) | payer MEDICAID | END 2018-11-04 15:02 | disposition home or self-care (01) | LOC: RAD 15:01 ==

== ENCOUNTER 2018-11-05 12:12 | Emergency (ER) | payer MEDICAID | END 2018-11-05 14:45 | disposition home or self-care (01) | LOC: ED 12:12 ==